=== PATIENT | female | born 1955 | race Caucasian/White ===

== ENCOUNTER → 2020-07-06 | Outpatient (CLI) | payer MEDICARE, OTHER ==
[~2020-07-06] MED LIST: ALBU90OI INH; ALEN70 PO; COENZYME Q10200 MG PO; DICLOFENAC SOD100 G1 TOP; EUTHYROX88 MCG PO; Estrace Vagin42.5 GM VAG; GLUCOSAMINE-CH1 EAC7 PO; LOSA25 PO; ROSU10TA PO; VITAMIN D-32000 UNIT PO; ZYRTEC10 M1 PO
== END | disposition home or self-care (01) ==
LOC: LAB 17:31
DX: N39.0 Urinary tract infection, site not specified (principal)
CPT/HCPCS: 87086

== ENCOUNTER → 2022-02-11 | Outpatient (CLI) | payer MEDICARE, OTHER | END | disposition home or self-care (01) | LOC: LAB SHORT 13:16 → LAB 13:16 | DX: L02.415 Cutaneous abscess of right lower limb (principal) | CPT/HCPCS: 87070; 87075; 87077; 87186; 87205 ==

== ENCOUNTER → 2022-04-15 | Outpatient (CLI) | payer MEDICARE, OTHER ==
[2022-04-15 11:02] LABS: BASOPHILS ABSOLUTE AUTO 0.05 K/mm3 (0.00-0.23); BASOPHILS PERCENT AUTO 1 % (0-2); EOSINOPHILS PERCENT AUTO 3 % (0-6); Hematocrit 42.3 % (33.0-51.0); Hemoglobin 13.8 g/dL (11.5-16.0); IMMATURE GRAN ABSOLUTE AUTO 0.02 K/mm3 (0.00-0.10); IMMATURE GRAN PERCENT AUTO 0 % (0-1); LYMPHOCYTES PERCENT AUTO 18 % (21-46); MONOCYTES ABSOLUTE AUTO 0.47 K/mm3 (0.16-1.47); MONOCYTES PERCENT AUTO 7 % (4-13); Mean Corpuscular HGB 32.5 pg (26.0-34.0); Mean Corpuscular HGB Conc 32.6 g/dL (31.5-36.5); Mean Corpuscular Volume 100 fL (80-100); Mean Platelet Volume 10.8 fL (9.1-12.4); NEUTROPHILS ABSOLUTE AUTO 4.87 K/mm3 (1.96-9.15); NEUTROPHILS PERCENT AUTO 72 % (41-73); Platelet Count 220 K/mm3 (150-400); RDW Coefficient Variation 13.8 % (11.7-14.2); RDW Standard Deviation 50.5 fL (35.1-46.3); Red Blood Cell Count 4.25 M/mm3 (3.80-5.20); White Blood Cell Count 6.81 K/mm3 (4.00-11.30)
[2022-04-15 11:14] LABS: Albumin, Blood 3.7 g/dL (3.4-5.0); Bilirubin, Total 0.5 mg/dL (0.1-1.0); Bun/Creatinine Ratio 18.8 (12.0-20.0); Calcium, Blood 8.6 mg/dL (8.5-10.1); Creatinine, Blood 1.28 mg/dL (0.40-1.00); Globulin, Blood 3.6 g/dL (2.2-4.0); Potassium, Blood 4.2 mmol/L (3.5-5.5); Total Protein, Blood 7.3 g/dL (6.4-8.2)
== END | disposition home or self-care (01) ==
LOC: LAB SHORT 10:56 → LAB 10:56
PROVIDERS: Physician Assistant
DX: R07.9 Chest pain, unspecified (principal)
CPT/HCPCS: 80053; 84484; 85025

== ENCOUNTER 2023-04-10 07:19 | Day surgery (SDC) | payer MEDICARE, OTHER ==
[~2023-04-10] VITALS: Ht 172.7 cm; Wt 99.3 kg
[~2023-04-10 07:19] MED LIST changes: +ACET325 PO; +AZELASTINE137 MCG/01; +PROLIA60 MG/1 ML SQ; +SIMPONI100 MG/1 M SQ
[2023-04-10 07:46] VITALS: BP 125/91
--- NOTE | 2023-04-10 07:52 | NUR ---
Ambulatory in Day SurgeryPre-Op teaching done. Pt verbalizes understanding. Patient confirms NPO status and agrees with scheduled surgery. History, Chart, Medications and Allergies reviewed before start of procedure.Patient States Post-Procedure ride home has been arranged. PT IS SOB W/AMBULATION STATES IT'S D/T HER COPD, LUNGS CTAB, PT IS WEARING A MASK D/T HER RA. IT IS ALSO SMOKEY IN THE DEPT. D/T WILDIFRE IN THE GREATER AREA.
--- NOTE | 2023-04-10 08:19 | NUR ---
04/10/[address] PROVIDING MAC.
[2023-04-10 09:33] VITALS: BP 93/63
--- NOTE | 2023-04-10 09:33 | NUR ---
PT TO STEP DOWN FROM COLONOSCOPY. PT ALERT AND ORIENTED X3. ABLE TO MOVE SELF IN BED. DENIES PO FLUIDS AT THIS TIME. DENIES PAIN. AT BEDSIDE.
[2023-04-10 09:52] VITALS: BP 102/65
--- NOTE | 2023-04-10 09:57 | NUR ---
PO FLUIDS AND CRACKERS GIVEN; TOLERATING WELL.
[2023-04-10 10:15] VITALS: BP 122/70
--- NOTE | 2023-04-10 10:16 | NUR ---
Patient up to Ambulate independently. Gait steady. Discharge instructions reviewed with patient. Patient verbalizes understanding. Copy given to patient to take home. Patient States Post-Procedure ride home has been arranged. Discharged via wheelchair to private car for ride home.
== END 2023-04-10 10:20 | disposition home or self-care (01) ==
LOC: ORSCMMR 07:19 → ORD 08:30 → ORSCMMR 08:30
PROVIDERS: Surgery
PROC: 0DBK8ZX Excision of Ascending Colon, Via Natural or Artificial Opening Endoscopic, Diagnostic (ICD-10-PCS; principal; 2023-04-10 08:30)
PROC: 0DBL8ZX Excision of Transverse Colon, Via Natural or Artificial Opening Endoscopic, Diagnostic (ICD-10-PCS; principal; 2023-04-10 08:30)
PROC: 0DBM8ZX Excision of Descending Colon, Via Natural or Artificial Opening Endoscopic, Diagnostic (ICD-10-PCS; principal; 2023-04-10 08:30)
DX: Z12.11 Encounter for screening for malignant neoplasm of colon (principal); R19.5 Other fecal abnormalities; D12.2 Benign neoplasm of ascending colon; D12.3 Benign neoplasm of transverse colon; D12.4 Benign neoplasm of descending colon; K63.5 Polyp of colon; I12.9 Hypertensive chronic kidney disease with stage 1 through stage 4 chronic kidney disease, or unspecified chronic kidney disease; N18.4 Chronic kidney disease, stage 4 (severe); J44.9 Chronic obstructive pulmonary disease, unspecified; Z87.891 Personal history of nicotine dependence; E03.9 Hypothyroidism, unspecified; E78.5 Hyperlipidemia, unspecified; Z79.899 Other long term (current) drug therapy
CPT/HCPCS: 88305; J2704; J7120

== ENCOUNTER → 2023-07-30 | Outpatient (CLI) | payer MEDICARE, OTHER | LOC: LAB SHORT 15:26 → LAB 15:26 | DX: E03.9 Hypothyroidism, unspecified (principal) | CPT/HCPCS: 36415; 84443 ==

== ENCOUNTER 2024-05-05 08:11 | Day surgery (SDC) | payer MEDICARE, OTHER ==
[~2024-05-05] VITALS: Ht 175.3 cm; Wt 102.0 kg
[2024-05-05] MEDS ORDERED: ABAT250V (08:29)
[2024-05-05] MEDS ORDERED: Lactated Ringer's 1,000 ML IV ONE ×2 (08:48)
[2024-05-05] MEDS ORDERED: propofoL 60 ML IV ONE (09:54)
[2024-05-05] MEDS ORDERED: propofoL 20 ML IV ONE (10:24)
[2024-05-05 10:44] VITALS: BP 123/79
== END 2024-05-05 10:58 | disposition home or self-care (01) ==
LOC: ORSCSDS 08:11
PROVIDERS: Surgery
PROC: 0DBN8ZX Excision of Sigmoid Colon, Via Natural or Artificial Opening Endoscopic, Diagnostic (ICD-10-PCS; principal; 2024-05-05 09:30)
PROC: 0DBL8ZX Excision of Transverse Colon, Via Natural or Artificial Opening Endoscopic, Diagnostic (ICD-10-PCS; principal; 2024-05-05 09:30)
PROC: 0DBP8ZX Excision of Rectum, Via Natural or Artificial Opening Endoscopic, Diagnostic (ICD-10-PCS; principal; 2024-05-05 09:30)
DX: Z12.11 Encounter for screening for malignant neoplasm of colon (principal); Z86.0100 Personal history of colon polyps, unspecified; D12.3 Benign neoplasm of transverse colon; K63.5 Polyp of colon; K62.1 Rectal polyp; K64.8 Other hemorrhoids; I12.9 Hypertensive chronic kidney disease with stage 1 through stage 4 chronic kidney disease, or unspecified chronic kidney disease; N18.9 Chronic kidney disease, unspecified; J44.9 Chronic obstructive pulmonary disease, unspecified; F32.A Depression, unspecified; F41.9 Anxiety disorder, unspecified; D64.9 Anemia, unspecified; E66.9 Obesity, unspecified; Z68.33 Body mass index [BMI] 33.0-33.9, adult; Z87.891 Personal history of nicotine dependence; Z79.899 Other long term (current) drug therapy
CPT/HCPCS: 88305; J2704; J7120

== ENCOUNTER 2024-11-29 04:01 | Day surgery (SDC) | payer MEDICARE, OTHER ==
[~2024-11-29 04:01] MED LIST changes: +ABAT250V; -ROSU10TA PO; +ROSUVASTATIN CA20 MG PO; -VITAMIN D-32000 UNIT PO; +VITAMIN D5000 UNIT PO
[2024-11-29] MEDS ORDERED: MethylPREDNISolone Sod Succ 40 MG VIAL IV SCH (06:55)
[2024-11-29 13:28] VITALS: BP 156/94
[2024-11-29] MEDS ORDERED: Infliximab-DYYB 300 MG in NS 250 ML IV SCH (13:40)
[2024-11-29 14:44] LABS: Hematocrit 42.9 % (33.0-51.0); Hemoglobin 13.7 g/dL (11.5-16.0); Mean Corpuscular HGB 32.3 pg (26.0-34.0); Mean Corpuscular HGB Conc 31.9 g/dL (31.5-36.5); Mean Corpuscular Volume 101 fL (80-100); Mean Platelet Volume 11.5 fL (9.1-12.4); Platelet Count 233 K/mm3 (150-400); RDW Coefficient Variation 13.4 % (11.7-14.2); Red Blood Cell Count 4.24 M/mm3 (3.80-5.20); White Blood Cell Count 4.16 K/mm3 (4.00-11.30)
[2024-11-29 14:49] VITALS: BP 153/82
[2024-11-29 15:09] LABS: C-REACTIVE PROTEIN, EXT RANGE <0.290 mg/dL (0.000-0.300)
--- NOTE | 2024-11-29 15:10 | NUR ---
PT C/O VISION PROBLEMS. RN CHECKED EYES AND PT WITH [employer]. THIS IS NEW AND HAS NEVER HAPPENED BEFORE. BP 172/94. IN FUSIION STOPPED AND PT STATES THE VISION WENT BACK TO NORMAL.
[2024-11-29 15:12] LABS: Alanine Aminotransfer (ALT/SGP 22 U/L (12-78); Albumin, Blood 3.7 g/dL (3.4-5.0); Albumin/Globulin Ratio 1.1 (0.8-1.8); Alk Phos 51 U/L (50-136); Anion Gap 8 mmol/L (3-11); Aspartate Aminotrans (AST/SGOT 15 U/L (12-37); Bilirubin, Total 0.5 mg/dL (0.1-1.0); Blood Urea Nitrogen 28 mg/dL (8-24); Bun/Creatinine Ratio 21.9 (12.0-20.0); CO2, Blood 27 mmol/L (21-32); Calcium, Blood 8.6 mg/dL (8.5-10.1); Chloride, Blood 107 mmol/L (98-108); Creatinine, Blood 1.28 mg/dL (0.40-1.00); Globulin, Blood 3.5 g/dL (2.2-4.0); Glomerular Filtration Rate 45 (60-); Glucose, Blood 122 mg/dL (70-99); Sodium, Blood 138 mmol/L (136-145); Total Protein, Blood 7.2 g/dL (6.4-8.2)
--- NOTE | 2024-11-29 15:17 | NUR ---
CALL TO DR MAS'S OFFICE TO GET NEW ORDERS.
[2024-11-29 15:49] VITALS: BP 155/85
[2024-11-29 16:08] VITALS: BP 153/92
[2024-11-29 16:23] VITALS: BP 162/98
--- NOTE | 2024-11-29 17:25 | NUR ---
NO RETURN CALL FROM DR. ENCOURAGED PT TO RETURN TO ER IF FEELING BAD AND TO TRY TO GET AHOLD OF DR IF SYMPTOMS RETURN. ENCOURAGED PT TO MAYBE TAKE A DOSE OF BANADRYL PRIOR TO NEXT VISIT.
[2024-11-29] MEDS ORDERED: INFLECTRA100 MG IV (17:28)
[2024-11-29] MEDS ORDERED: ALLEGRA ALLERG180 MG PO (17:30)
[2024-11-29] MEDS ORDERED: CALCITRIOL0.25 MC4 PO (17:32)
[2024-11-29] MEDS ORDERED: Cymbalta20 MG PO (17:33)
[2024-11-29] MEDS ORDERED: BUPROPION XL150 M1 PO (17:33)
== END 2024-11-29 17:05 | disposition home or self-care (01) ==
LOC: ATC 04:01
PROVIDERS: Internal Medicine
DX: M05.79 Rheumatoid arthritis with rheumatoid factor of multiple sites without organ or systems involvement (principal); I12.9 Hypertensive chronic kidney disease with stage 1 through stage 4 chronic kidney disease, or unspecified chronic kidney disease; N18.9 Chronic kidney disease, unspecified; E03.9 Hypothyroidism, unspecified; F17.210 Nicotine dependence, cigarettes, uncomplicated; Z88.5 Allergy status to narcotic agent; Z79.890 Hormone replacement therapy; Z79.899 Other long term (current) drug therapy
CPT/HCPCS: 80053; 85027; 86140; 96375; 96413; 96415; J2919; J7050; Q5103

== ENCOUNTER 2024-12-13 02:49 | Day surgery (SDC) | payer MEDICARE, OTHER ==
[~2024-12-13] VITALS: Wt 105.6 kg
[~2024-12-13 02:49] MED LIST changes: +ALLEGRA ALLERG180 MG PO; +BUPROPION XL150 M1 PO; +CALCITRIOL0.25 MC4 PO; +Cymbalta20 MG PO; +INFLECTRA100 MG IV
[2024-12-13] MEDS ORDERED: MethylPREDNISolone Sod Succ 40 MG VIAL IV SCH (11:15)
[2024-12-13] MEDS ORDERED: Infliximab-DYYB 300 MG in NS 250 ML IV SCH (14:05)
[2024-12-13 15:34] VITALS: BP 138/61
[2024-12-13 16:35] VITALS: BP 132/88
== END 2024-12-13 17:11 | disposition home or self-care (01) ==
LOC: ATC 02:49
DX: M05.79 Rheumatoid arthritis with rheumatoid factor of multiple sites without organ or systems involvement (principal); I12.9 Hypertensive chronic kidney disease with stage 1 through stage 4 chronic kidney disease, or unspecified chronic kidney disease; N18.31 Chronic kidney disease, stage 3a; M81.0 Age-related osteoporosis without current pathological fracture; E78.5 Hyperlipidemia, unspecified; E03.9 Hypothyroidism, unspecified; F17.210 Nicotine dependence, cigarettes, uncomplicated; M17.0 Bilateral primary osteoarthritis of knee; E66.9 Obesity, unspecified; Z68.33 Body mass index [BMI] 33.0-33.9, adult; Z79.890 Hormone replacement therapy; Z79.899 Other long term (current) drug therapy; Z88.5 Allergy status to narcotic agent
CPT/HCPCS: 96375; 96413; 96415; J2919; J7050; Q5103